=== PATIENT | female | born 1965 | race Caucasian/White ===

== ENCOUNTER 2018-07-02 18:10 | Emergency (ER) | payer MEDICARE ==
[2018-07-02 20:03] VITALS: BP 136/80
[2018-07-02] MEDS ORDERED: Albuterol/Ipratropium NEB.SOL* Albuterol 2.5 MG/Ipratropium 0.5 MG 3 ML INH ONE (20:22)
--- NOTE | 2018-07-02 20:29 | UC ---
Respiratory Complaint HPI - HPI Summary HPI Summary: 53 yo Wf with MMP, CAD, Mi s/p PCI and 2 stents, hypersensitivity to environmental allergens c/o SOB and air hunger sx x 1 day after breathing in moldy air in her hotel room today. She noted "black mold" in the ceiling that she hadn't noticed yesterday but noticed this AM and just "don't fell right, like i'm in a fog" Denies f/c/n/v/d/cough or URI but c/o green sinus d/c and right ear pain - History of Current Complaint Chief Complaint: UCRespiratory Stated Complaint: CONGESTION Time Seen by Provider: 07/02/18 20:08 Hx Obtained From: Patient Hx Last Menstrual Period: n/a ?: No Onset/Duration: Sudden Onset, Still Present Timing: Constant Severity Initially: Moderate Severity Currently: Moderate Pain Intensity: 6 - Allergies/Home Medications Allergies/Adverse Reactions: Allergies Allergy/AdvReac Type Severity Reaction Status Date / Time ciprofloxacin Allergy Hives Verified 07/02/18 19:54 Penicillins Allergy Unknown Verified 07/02/18 19:54 Reaction Details prednisone Allergy Palpitation Verified 07/02/18 19:54 s Sulfa (Sulfonamide Allergy Unknown Verified 07/02/18 19:54 Antibiotics) Reaction Details Home Medications: Home Medications Albuterol HFA INHALER* [Ventolin HFA Inhaler*] 2 puff INH Q4H PRN 07/02/18 [ History Confirmed 07/02/18] Aspirin 81 mg CHEW TAB* 162 mg PO BEDTIME 07/02/18 [History Confirmed 07/02/18] Docusate CAP* [Colace Cap*] 100 mg PO DAILY 07/02/18 [History Confirmed 07/02/18 ] Hydrocodone/APAP 5/300 (NF) [Vicodin 5 MG/300 MG(NF)] 1 tab PO Q6H PRN 07/02/18 [History Confirmed 07/02/18] Ibuprofen TAB* [Motrin TAB* 600 MG] 1 tab PO DAILY PRN 07/02/18 [History Confirmed 07/02/18] Phenobarb/Hyoscy/Atropine/Scop [ Tablet] 16.2 mg PO BID 07/02/18 [ History Confirmed 07/02/18] Rabeprazole Sodium [Aciphex] 20 mg PO BID 07/02/18 [History Confirmed 07/02/18] PMH/Surg Hx/FS Hx/Imm Hx Previously Healthy: No Endocrine History: Dyslipidemia Cardiovascular History: Hypertension, Myocardial Infarction, Other - STENTS x2 Other Cardiovascular History: ischemia Respiratory History: Pneumonia - Surgical History Surgical History: Yes Surgery Procedure, Year, and Place: Cardiac stent. neck surgery. carpal tunnel. 2 trigger finger releases on right hand. gall bladder removal. tubal . tonsillectomy - Social History Alcohol Use: Rare Substance Use Type: None Smoking Status (MU): Former Smoker Type: Cigarettes When Did the Patient Quit Smoking/Using Tobacco: 2014 Review of Systems Constitutional: Negative Skin: Negative Eyes: Negative ENT: Negative Respiratory: Shortness Of Breath Cardiovascular: Negative Gastrointestinal: Negative Genitourinary: Negative Motor: Negative Neurovascular: Negative Musculoskeletal: Negative Neurological: Negative Psychological: Negative All Other Systems Reviewed And Are Negative: Yes Physical Exam - Summary Physical Exam Summary: Vital Signs Reviewed: Yes Appearance: Positive: fatigued Skin: Positive: Warm Head/Face: Positive: Normal Head/Face Inspection Eyes: Positive: Normal, EOMI, CARLA ENT: Positive: Normal ENT inspection Neck: Positive: POSITIVE right post auricular LN tenderness Respiratory/Lung Sounds: Positive: Clear to Auscultation, no rhonchi or wheezing Cardiovascular: Positive: Normal, RRR, S1, S2 Abdomen Description: Positive: Nontender, Soft Musculoskeletal: Positive: Normal Neurological: Positive: CN Intact II-XII Psychiatric: Positive: Normal Vital Signs: Initial Vital Signs Temp 36.5 C 07/02/18 19:49 Pulse 87 07/02/18 19:49 Resp 17 07/02/18 19:49 BP 136/80 07/02/18 19:49 Pulse Ox 100 07/02/18 19:49 Diagnostic Evaluation - Laboratory O2 Sat by Pulse Oximetry: 100 Respiratory Course/Dx - Differential Dx/Diagnosis Provider Diagnoses: SOB, hypersensitivity pneumonitis, - Albuterol MDI PRN. sinusitis and evolving right OM- Biaxin 500 BID x 7 days if sx worsen Discharge - Sign-Out/Discharge Documenting (check all that apply): Patient Departure All imaging exams completed and their final reports reviewed: Yes - Discharge Plan Condition: Stable Disposition: HOME Prescriptions: Clarithromycin TAB* [Biaxin 500 MG TAB*] 500 mg PO BID 7 Days #14 tab Patient Education Materials: Sinusitis (ED), Shortness of Breath (ED) Referrals: No Primary Care Phys,NOPCP [Primary Care Provider] - Additional Instructions: follow up with PCP in 2-3 days - Billing Disposition and Condition Condition: STABLE Disposition: Home
[2018-07-02] MEDS ORDERED: Albuterol HFA INHALER* 8 gm MDI INH ONE (21:20)
--- NOTE | 2018-07-03 08:50 | RAD ---
INDICATION: Cough and congestion COMPARISON: None TECHNIQUE: PA and lateral views of the chest were obtained. FINDINGS: The heart and mediastinum are normal in size and contour. The lungs are grossly clear. There is no evidence of large pleural effusion. The mid-level cervical spine plain screw fixator is noted. There is no radiographic evidence of free air beneath the diaphragm IMPRESSION: No radiographic evidence of acute cardiopulmonary disease. [id number]
== END 2018-07-02 21:36 | disposition home or self-care (01) ==
LOC: UCCORT 18:10
DX: R06.02 Shortness of breath (principal); J67.9 Hypersensitivity pneumonitis due to unspecified organic dust; J32.9 Chronic sinusitis, unspecified; H66.91 Otitis media, unspecified, right ear; I25.10 Atherosclerotic heart disease of native coronary artery without angina pectoris; I10 Essential (primary) hypertension; I25.2 Old myocardial infarction; Z95.5 Presence of coronary angioplasty implant and graft; Z88.1 Allergy status to other antibiotic agents; Z88.0 Allergy status to penicillin; Z88.8 Allergy status to other drugs, medicaments and biological substances; Z88.2 Allergy status to sulfonamides; Z79.82 Long term (current) use of aspirin; Z87.891 Personal history of nicotine dependence
CPT/HCPCS: 71046; 99203; A9270-GY; G0463